=== PATIENT | male | born 1955 | race Caucasian/White ===

== ENCOUNTER 2018-03-26 08:00 | Outpatient (RCR) | payer BC ==
[~2018-03-26 08:00] MED LIST: ASPIRIN 81M81 MG/TA2 PO; ZOCOR 20MG20 MG PO
== END 2018-04-14 13:25 | disposition home or self-care (01) ==
LOC: WSPT 08:00
DX: M51.16 Intervertebral disc disorders with radiculopathy, lumbar region (principal); Z80.42 Family history of malignant neoplasm of prostate; Z82.49 Family history of ischemic heart disease and other diseases of the circulatory system; Z81.8 Family history of other mental and behavioral disorders; Z79.2 Long term (current) use of antibiotics; Z79.82 Long term (current) use of aspirin; Z79.899 Other long term (current) drug therapy